=== PATIENT | female | born 2000 | race Caucasian/White ===

== ENCOUNTER → 2021-06-08 | Outpatient (REF) ==
[~2021-06-08] MED LIST: DIAST10 RC; LAMICTAL XR25 MG PO
== END ==
LOC: ZLAB.WCH 09:45
DX: Z01.89 Encounter for other specified special examinations (principal)

== ENCOUNTER → 2021-12-06 | Outpatient (CLI) | payer BC | LOC: COL.RAD 16:26 | DX: G40.909 Epilepsy, unspecified, not intractable, without status epilepticus (principal); E55.9 Vitamin D deficiency, unspecified; F32.A Depression, unspecified; R07.81 Pleurodynia ==